=== PATIENT | female | born 1940 | race African-American/Black ===

== ENCOUNTER 2019-08-25 16:34 | Emergency (ER) | payer OTHER ==
[~2019-08-25] VITALS: Ht 162.6 cm; Wt 83.9 kg
[~2019-08-25 16:34] MED LIST: ADVIL100 M2 PO; B12INJ PO; CALCIUM 600 +1 EAC1 PO; CELEBREX 200 M200 M1; COLACE 100 MG100 MG; IRON325 PO; JANTOVEN5 MG; LIPITOR 10 MG10 M1 PO; MULTIVIT &0.5 MG/1 M PO; NORCO 5-325 TA1 EACH PO; PERCOCET 5-3251 EACH; VITAMIN E400 UNIT PO; VITAMINC500 PO
[2019-08-25 16:38] VITALS: BP 180/94
[2019-08-25] MEDS ORDERED: KEFLEX500 M1 PO (18:28)
== END 2019-08-25 19:20 | disposition home or self-care (01) ==
LOC: ER 16:34
DX: S62.522B Displaced fracture of distal phalanx of left thumb, initial encounter for open fracture (principal); Z79.899 Other long term (current) drug therapy; Z96.652 Presence of left artificial knee joint; W01.0XXA Fall on same level from slipping, tripping and stumbling without subsequent striking against object, initial encounter; Y93.89 Activity, other specified; Y92.89 Other specified places as the place of occurrence of the external cause; Y99.8 Other external cause status